=== PATIENT | male | born 1995 | race African-American/Black ===

== ENCOUNTER 2016-11-14 22:43 | Emergency (ER) | payer OTHER ==
[~2016-11-14] VITALS: Ht 170.2 cm; Wt 63.5 kg
--- NOTE | 2016-11-15 | ED EYE COMPLAINT ---
History of Present Illness General Chief Complaint: Eye Problems Stated Complaint: EYE PROBLEMS Source: patient Exam Limitations: no limitations Vital Signs & Intake/Output Vital Signs & Intake/Output Vital Signs Date Time Temp Pulse Resp B/P B/P Pulse O2 O2 Flow FiO2 Mean Ox Delivery Rate 11/14 2255 97.1 63 16 143/94 99 Room Air ED Intake and Output 11/15 0000 11/14 1200 Intake Total Output Total Balance Patient 140 lb Weight Weight Reported by Patient Measurement Method Allergies Coded Allergies: No Known Allergies (11/14/16) Triage Note: 21M ARRIVES WITH 15MIN OF PAIN AND WATERING TO L EYE. TOOK OUT CONTACT LENS WHICH APPEARS INTACT. SCLERA AND CONJUNCTIVA RED AND BOTH SWOLLEN WITH CONSTANT TEARING. PAIN 2/10, IRRITATED AND DIFFICULT TO KEEP EYE OPEN. ICE APPLIED Triage Nurses Notes Reviewed? yes Onset: Gradual Duration: hour(s): Timing: no prior history Injury Environment: home Severity: mild, moderate Modifying Factors: Improves With: rest. Left Eye Associated Symptoms: burning, itching Right Eye Associated Symptoms: normal HPI: 21 yo gentleman presents with 2-3 hours of left eye burning, itching, and watering, with redness. He notes that he was playing with his dog, "and then I pulled out my contacts... didn't clean my hands... and then later my eye started burning and getting red. " He notes no change in vision. He is otherwise well. Past History Travel History Traveled to [place] past 21 day No Medical History Any Pertinent Medical History? see below for history Neurological: NONE EENT: NONE Cardiovascular: NONE Respiratory: NONE Gastrointestinal: NONE Hepatic: NONE Renal: NONE Musculoskeletal: NONE Psychiatric: NONE Endocrine: NONE Blood Disorders: NONE Cancer(s): NONE Surgical History Surgical History: none Psychosocial History What is your primary language Macedonian Tobacco Use: Never used ETOH Use: denies use Illicit Drug Use: denies illicit drug use Family History Hx Contributory? No Review of Systems Review of Systems Constitutional: Reports: no symptoms. Eyes: Reports: no symptoms. Ear: Reports: no symptoms. Nose: Reports: no symptoms. Mouth: Reports: no symptoms. Throat: Reports: no symptoms. Respiratory: Reports: no symptoms. Cardiovascular: Reports: no symptoms. GI: Reports: no symptoms. Genitourinary: Reports: no symptoms. Musculoskeletal: Reports: no symptoms. Skin: Reports: no symptoms. Neurological/Psychological: Reports: no symptoms. Hematologic/Endocrine: Reports: no symptoms. Immunologic/Allergic: Reports: no symptoms. All Other Systems: Reviewed and Negative Physical Exam General Appearance: well developed/nourished, mild distress General Inspection: normal inspection Eyelid: normal inspection, everted for exam Conjunctiva/Sclera: injected Cornea: normal inspection EOM: intact Pupil: normal accommodation, normal pupil, PERRL General Inspection: normal inspection Eyelid: normal inspection Conjunctiva/Sclera: normal inspection Cornea: normal inspection EOM: intact Pupil: normal accommodation, normal pupil, PERRL Physical Exam Head: atraumatic Nose: normal inspection Mouth/Throat: normal mouth inspection Neck: normal inspection Skin: intact, normal color, warm/dry Progress Differential Diagnosis: corneal abrasion, conjunctivitis Plan of Care: pt feels better with topical tetracaine... sent rx for polytrim to pharmacy... pt encouraged to follow up with eye doctor if not better. Departure Departure Disposition: HOME OR SELF CARE Condition: Stable Clinical Impression Primary Impression: Conjunctivitis Referrals: UNKNOWN (PCP/Family) Departure Forms: Customer Survey General Discharge Information
[2016-11-15] MEDS ORDERED: POLYTRIM EYE DR10 ML OPH (00:09)
[2016-11-15 00:13] VITALS: BP 115/60
== END 2016-11-15 00:14 ==
LOC: ERH 22:43
DX: H10.9 Unspecified conjunctivitis (principal)